=== PATIENT | male | born 1995 | race Caucasian/White ===

== ENCOUNTER 2019-09-27 18:51 | Emergency (ER) | payer BC, SELFPAY ==
[2019-09-27 19:11] VITALS: BP 157/93; PULSE 84; RESP 21; TEMP 36.6; O2SAT 99; BMI 19.9
--- NOTE | 2019-09-27 19:17 | HMH.EDUTC ---
[facility] [place] Impression: Sore throat Allergic rhinitis Qualifiers: Allergic rhinitis trigger: unspecified Allergic rhinitis seasonality: unspecified Qualified Code(s): J30.9 - Allergic rhinitis, unspecified Disposition: Home, Self-Care Condition on Discharge: Good Instructions: Sore Throat, Allergic Rhinitis, DI for Allergic Rhinitis Additional Instructions: *Monitor Temp, Over the counter Motrin or Tylenol as directed/as needed Tylenol every 4 hours and Motrin every 6 hours (as long as your family doctor has told you that you can take it) for fever or pain. and straight to ER if unable to lower temp less than 101.0 after medication given *Warm salt water gargles may help to soothe the throat *Throat Lozenges *Warm fluids like tea with honey may help to soothe the throat *Sleep elevated *Humidifier/Vaporizer Your throat swab was sent for culture. Those results are typically sent to your primary care. Be sure to follow up in 2-3 days with your family doctor/primary care physician if no improvement so they can review those result and treat if necessary. If you don?t have a primary care doctor, I recommend you get one but in the mean time, you will have to return to a walk in clinic Follow up with family doctor if no improvement or any worsening of symptoms Over the counter Claritain may help with allergy symptoms Follow up IMMEDIATELY for new or worsening symptoms or no Noticeable improvement over the next 48-72 hours. 911 for difficulty breathing or swallowing Referrals: Guanako Hernandez MD [Primary Care Provider] - As needed Time of Disposition: 19:34 Medical Decision Making - Real Inquiry Pt receiving controlled substance: No Real was queried for this patient: No Vital Signs: 09/27/19 19:11 Temperature 97.9 F Temperature Source Oral Pulse Rate [Right Brachial] 84 Respiratory Rate 21 Blood Pressure [Right Arm] 157/93 H Blood Pressure Mean [Right Arm] 114 Blood Pressure Source [Right Arm] Automatic Cuff Blood Pressure Position [Right Arm] Sitting 02 Sat by Pulse Oximetry 99 Oxygen Delivery Method Room Air - Lab Data Lab results reviewed: Yes: I reviewed the patient's lab results. Lab Results 09/27/19 19:13: Strep Scn Rapid Clinic Negative Orders (Tests/Meds): ORDERS Category Date Time Status Strep Screen Confirmation Stat Micro 09/27/19 19:13 [place] [facility] [place] - General Stated complaint: vomitting Time Seen by Provider: 09/27/19 19:17 Mode of Arrival: Ambulatory Source of Information: Patient Limitations: No Limitations Description of Symptoms (Recalled from Triage Doc. by RN): PATIENT STATES HE VOMITING X 1 AT APPROX 0330 THIS MORNING AND AFTER THAT HIS UVULA BECAME SWOLLEN. HE STATES IT HURTS TO SWALLOW. NO SOA. HE STATES HE DID HAVE A SIMILAR EPISODE THIS PAST WEEKEND AFTER DRINKING ALCOHOL HEENT Symptoms (Recalled from RN notes): Yes Resp Symptoms (Recalled from RN notes): No Skin Symptoms (Recalled from RN notes): No MS Symptoms (Recalled from RN notes): No Functional Status (Recalled from RN notes): WNL - History of Present Illness Provider Complaint: Patient state that he got drunk over the weekend and vomited and felt like his Uvula was swollen then it went down and went away States that he woke up this morning and vomited and his uvula felt swollen again and his throat was scratchy and hurt when he swallowed States that now throat is still sore but uvula swelling is gone - Related Data Home Medications Medication Instructions Recorded Confirmed Famotidine [Pepcid 20mg Tablet] 20 mg PO DAILY 09/27/19 09/27/19 Allergies Allergy/AdvReac Type Severity Reaction Status Date / Time No Known Allergies Allergy Verified 07/09/19 11:20 - Worker's Comp Is this a Worker's Comp case?: No [facility] History - Hepatitis A Screen Drug use history?: No High risk sexual behaviors?: No History of sexually transmitted infection?: No Currently employ
[2019-09-27 19:43] LABS: UTC Strep Screen (Rapid) Negative (Negative)
[2019-09-27 19:50] VITALS: BP 157/93; PULSE 84; RESP 21; TEMP 36.6; O2SAT 99
== END 2019-09-27 19:51 | disposition home or self-care (01) ==
PROVIDERS: Emergency Provider Nurse Practitioner; PCP Emergency Medicine
DX: J30.9 Allergic rhinitis, unspecified (principal); F17.210 Nicotine dependence, cigarettes, uncomplicated
CPT/HCPCS: 87880; 96372; 99202

== ENCOUNTER 2019-10-20 02:48 | Emergency (ER) | payer BC, SELFPAY ==
[2019-10-20 02:57] VITALS: BP 133/91; PULSE 94; RESP 17; TEMP 37.1; O2SAT 98; BMI 19.5
--- NOTE | 2019-10-20 02:57 | XR_ITS ---
PROCEDURE: XR SHOULDER LT MIN 2V CLINICAL INDICATION: pain- no known injury COMPARISON: No exams were available for comparison FINDINGS: No fracture or dislocation. No lytic or blastic change. There is normal mineralization. The joint spaces are well-preserved. No significant degenerative/arthritic changes. No erosive changes evident. Other findings:None. IMPRESSION: No acute findings. Dictated by: Josué Abel MD 10/20/2019 08:10 Electronically signed by Josué Abel MD in [place] 10/20/2019 08:10
--- NOTE | 2019-10-20 03:53 | HMH.EDGENADL ---
ED Disposition Clinical Impression: Bursitis of left shoulder Disposition: Home, Self-Care Condition on Discharge: Good Instructions: DI for Shoulder Pain Additional Instructions: use meds and see pcp for follow up Prescriptions: predniSONE [Prednisone 20mg Tab] 20 mg PO BID #10 tab Transmission Status: Pending to [id number] Referrals: Guanako Hernandez MD [Primary Care Provider] - - Critical Care Critical Care Time: No Attestation: On 10/20/19, the high probability of a clinically significant, sudden or life threatening deterioration of the following system(s) required my full and direct attention, intervention and personal management. The time I documented below is in addition to time spent performing reported procedures but includes the following listed in this critical care notation. Medical Decision Making - Medical Records Medical records reviewed: Yes: I reviewed the patient's medical records. - Real Inquiry Pt receiving controlled substance: No Vital Signs: 10/20/19 02:57 Temperature 98.7 F Temperature Source Oral Pulse Rate [Right Brachial] 94 H Respiratory Rate 17 Blood Pressure [Right Arm] 133/91 H Blood Pressure Mean [Right Arm] 105 Blood Pressure Source [Right Arm] Automatic Cuff Blood Pressure Position [Right Arm] Sitting 02 Sat by Pulse Oximetry 98 Oxygen Delivery Method Room Air Orders (Tests/Meds): ORDERS Category Date Time Status XR shoulder LT min 2V Stat Exams 10/20/19 02:57 Taken - Radiology Data #1 Image(s): Shoulder Image Reviewed: Yes I reviewed the patient's radiology image Preliminary Findings: No Fracture Seen General Adult HPI - General Chief complaint: PAIN Stated complaint: Left shoulder pain Time Seen by Provider: 10/20/19 03:05 Mode of Arrival: Family Vehicle Source of Information: Patient, Medical Record Limitations: No Limitations Description of Symptoms (Recalled from ER Triage Doc. by RN): woke up monday morning with left shoulder pain, denies injury. states he has used icy hot, tylenol and ibuprofen without relief. concerned because although he does repetitive pulling on items at work, he doesn't recall any specific incident that would've hurt it. denies prev surgery to area. - History of Present Illness HPI narrative: progressive pain aixa with mov over the last few days - Onset (ago): day(s) Location: upper extremity Radiation: distal Severity: moderate Quality: sharp Consistency: intermittent Exacerbating factors: movement Associated symptoms: denies other symptoms Treatments prior to arrival: none - Related Data Home Medications Medication Instructions Recorded Confirmed Famotidine [Pepcid 20mg Tablet] 20 mg PO DAILY 09/27/19 09/27/19 Previous Rx's Medication Instructions Recorded predniSONE [Prednisone 20mg 20 mg PO BID #10 tab 10/20/19 Tab] Allergies Allergy/AdvReac Type Severity Reaction Status Date / Time No Known Allergies Allergy Verified 07/09/19 11:20 [facility] History - Hepatitis A Screen Drug use history?: No High risk sexual behaviors?: No History of sexually transmitted infection?: No Currently employed?: No Childcare worker?: No Do you have indoor plumbing?: Yes Do you have electricity?: Yes Attestation statement:: This patient has been screened for Hepatitis A risk factors. I have reviewed the patient's past medical history: Yes Medical History: Reports:: Asthma Amputation: No Fractures: No Comment: scope - Social History Smoking Status: Current every day smoker Tobacco Type: cigarettes # Packs/Day (cigarettes): 1 Alcohol Intake: current Substance Use Type: hallucinogens Occupational Status: other Family Hx:: No significant family history ROS Obtained: Yes All systems reviewed & no additional complaints - Constitutional Constitutional: Denies fever(s) - Eyes Eyes: Denies change in vision - ENT Ears, Nose, Mouth, and Throat: Denies ab
[2019-10-20 04:05] VITALS: BP 128/89; PULSE 88; RESP 16; TEMP 37.1; O2SAT 99
== END 2019-10-20 04:12 | disposition home or self-care (01) ==
PROVIDERS: Emergency Provider Emergency Medicine; PCP Emergency Medicine
DX: M75.52 Bursitis of left shoulder (principal); J45.909 Unspecified asthma, uncomplicated; F17.210 Nicotine dependence, cigarettes, uncomplicated
CPT/HCPCS: 73030; 99282

== ENCOUNTER 2019-10-31 08:59 | Emergency (ER) | payer BC, SELFPAY ==
[2019-10-31 09:02] VITALS: BP 115/80; PULSE 80; RESP 18; O2SAT 99
[2019-10-31 09:07] VITALS: BP 143/92; PULSE 81; RESP 18; TEMP 36.7; O2SAT 98; BMI 19.3
--- NOTE | 2019-10-31 09:09 | HMH.EDGENADL ---
ED Disposition Clinical Impression: Acute bronchitis Qualifiers: Bronchitis organism: unspecified organism Qualified Code(s): J20.9 - Acute bronchitis, unspecified Disposition: Home, Self-Care Condition on Discharge: Good Instructions: DI for Acute Bronchitis Additional Instructions: Z-Jerman as prescribed. Follow-up with primary care provider if not better in 1 week. Prescriptions: Azithromycin [Zithromax 250mg tab] 250 mg PO DIRECTED #6 tab Transmission Status: Received by [id number] Referrals: Guanako Hernandez MD [Primary Care Provider] - Forms: Work/School Release - Critical Care Critical Care Time: No Attestation: On , the high probability of a clinically significant, sudden or life threatening deterioration of the following system(s) required my full and direct attention, intervention and personal management. The time I documented below is in addition to time spent performing reported procedures but includes the following listed in this critical care notation. Medical Decision Making - Real Inquiry Pt receiving controlled substance: No Vital Signs: 10/31/19 09:02 10/31/19 09:07 10/31/19 09:32 Temperature 98.1 F Temperature Source Oral Pulse Rate [Radial] 80 81 66 Respiratory Rate 18 18 17 Blood Pressure [Right Arm] 115/80 143/92 H 124/70 Blood Pressure Mean [Right Arm] 91 109 88 Blood Pressure Source [Right Arm] Automatic Cuff Automatic Cuff Automatic Cuff Blood Pressure Position [Right Arm] Sitting Sitting Sitting 02 Sat by Pulse Oximetry 99 98 99 Oxygen Delivery Method Room Air Room Air Room Air - Radiology Data #1 Image(s): Chest Image Reviewed: Yes I have reviewed radiologist's interpretation Preliminary Findings: Normal/NAD Medical Decision Narrative: Discussed results. Patient requests a work note. Says that his next shift is tomorrow. General Adult HPI - General Stated complaint: coughing Time Seen by Provider: 10/31/19 09:09 - History of Present Illness HPI narrative: States that while at work last night he began coughing up some black phlegm. Denies chest pain, shortness of breath, fever, rhinorrhea, earache, sore throat. He works at a [employer] for the past 4-1/2 months. 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 He says he was told he had bronchitis. He states he is a avid smoker , 1/2 pack/day. - Related Data Previous Rx's Medication Instructions Recorded Azithromycin [Zithromax 250mg 250 mg PO DIRECTED #6 tab 10/31/19 tab] Allergies Allergy/AdvReac Type Severity Reaction Status Date / Time No Known Allergies Allergy Verified 07/09/19 11:20 [facility] History - Hepatitis A Screen Attestation statement:: This patient has been screened for Hepatitis A risk factors. I have reviewed the patient's past medical history: Yes Medical History: Reports:: Asthma Amputation: No Fractures: No Comment: scope - Social History Smoking Status: Current every day smoker Tobacco Type: cigarettes # Packs/Day (cigarettes): 1 Alcohol Intake: current Substance Use Type: hallucinogens Occupational Status: other Family Hx:: No significant family history ROS Obtained: Yes Systems reviewed as appropriate & no additional complaints - Constitutional Constitutional: Denies fever(s) - ENT Ears, Nose, Mouth, and Throat: Denies nasal discharge, Denies sore throat - Cardiovascular Cardiovascular: Denies chest pain - Respiratory Respiratory: Yes cough, No dyspnea, No coughing up blood, No pain on inspiration - Gastrointestinal Gastrointestingal: Denies: diarrhea, vomiting Physical Exam - General General appearance: alert, in no apparent distress - Head Head exam: atraumatic, normocephalic - Eye Eye exam: Present: normal appearance, EOMI - ENT ENT exam: Present: normal oropharynx, mucous membranes yolanda
[2019-10-31 09:11] VITALS: BMI 41.4
--- NOTE | 2019-10-31 09:12 | XR_ITS ---
PROCEDURE: XR CHEST 2V CLINICAL HISTORY: cough COMPARISON: CXR CHEST(2 VIEWS-NOT PORTABLE) from 04/25/2012 CXR CHEST(2 VIEWS-NOT PORTABLE) from 04/14/2015 FINDINGS: The cardiomediastinal silhouette and pulmonary vascularity are within normal limits. The lungs are clear without infiltrates, suspicious nodules, or pleural effusions. No acute bony abnormalities. IMPRESSION: No acute findings. Dictated by: Josué Abel MD 10/31/2019 09:44 Electronically signed by Josué Abel MD in [place] 10/31/2019 09:44
[2019-10-31 09:32] VITALS: BP 124/70; PULSE 66; RESP 17; O2SAT 99
[2019-10-31 10:01] VITALS: BP 124/70; PULSE 66; RESP 17; TEMP 36.7; O2SAT 99
== END 2019-10-31 10:03 | disposition home or self-care (01) ==
PROVIDERS: Emergency Provider Emergency Medicine; PCP Emergency Medicine
DX: J20.9 Acute bronchitis, unspecified (principal); F17.210 Nicotine dependence, cigarettes, uncomplicated
CPT/HCPCS: 71046; 99282

== ENCOUNTER 2020-01-08 10:57 | Emergency (ER) | payer BC, SELFPAY ==
[2020-01-08 10:58] VITALS: BP 144/87; PULSE 77; RESP 16; TEMP 36.6; O2SAT 98; BMI 21.9
--- NOTE | 2020-01-08 11:24 | HMH.EDUTC ---
[facility] [place] Clinical Impression: Allergic rhinitis Qualifiers: Allergic rhinitis trigger: unspecified Allergic rhinitis seasonality: unspecified Qualified Code(s): J30.9 - Allergic rhinitis, unspecified Disposition: Home, Self-Care Condition on Discharge: Good Instructions: DI for Allergic Rhinitis, Allergic Rhinitis Additional Instructions: *Monitor Temp, Over the counter Motrin or Tylenol as directed/as needed Tylenol every 4 hours and Motrin every 6 hours (as long as your family doctor has told you that you can take it) for fever or pain. and straight to ER if unable to lower temp less than 101.0 after medication given *Warm salt water gargles may help to soothe the throat *Throat Lozenges *Warm fluids like tea with honey may help to soothe the throat *Sleep elevated *Humidifier/Vaporizer *Flonase 2 sprays in each nostril daily but be aware that it may take 2-3 days before you notice improvement Follow up IMMEDIATELY for new or worsening symptoms or no Noticeable improvement over the next 48-72 hours. 911 for difficulty breathing or swallowing Prescriptions: Fluticasone Propionate [Flonase 50mcg nasal spray 16gm] 1 - 2 spr NS DAILY #1 bottle Transmission Status: Pending to [id number] Referrals: Guanako Hernandez MD [Primary Care Provider] - Time of Disposition: 11:30 Medical Decision Making - Real Inquiry Pt receiving controlled substance: No Real was queried for this patient: No Vital Signs: 01/08/20 10:58 Temperature 97.9 F Temperature Source Oral Pulse Rate [Right] 77 Respiratory Rate 16 Blood Pressure [Right Arm] 144/87 H Blood Pressure Mean [Right Arm] 106 Blood Pressure Source [Right Arm] Automatic Cuff Blood Pressure Position [Right Arm] Sitting 02 Sat by Pulse Oximetry 98 Oxygen Delivery Method Room Air [facility] [place] HPI - General Stated complaint: coughing, vomiting Time Seen by Provider: 01/08/20 11:24 Mode of Arrival: Ambulatory Source of Information: Patient Limitations: No Limitations Description of Symptoms (Recalled from Triage Doc. by RN): Pt advises he got up to go to work this morning and started coughing. Advises he has just been coughing HEENT Symptoms (Recalled from RN notes): Yes (cough) Resp Symptoms (Recalled from RN notes): No Skin Symptoms (Recalled from RN notes): No MS Symptoms (Recalled from RN notes): No Functional Status (Recalled from RN notes): na - History of Present Illness Provider Complaint: Patient states that he has been having allergy symptoms States that he woke up this morning and was coughing and work wouldnt let him come in and told him that he needed to come in and get checked so he did - Related Data Previous Rx's Medication Instructions Recorded Fluticasone Propionate [Flonase 1 - 2 spr NS DAILY #1 bottle 01/08/20 50mcg nasal spray 16gm] Allergies Allergy/AdvReac Type Severity Reaction Status Date / Time No Known Allergies Allergy Verified 07/09/19 11:20 - Worker's Comp Is this a Worker's Comp case?: No [facility] History - Hepatitis A Screen Drug use history?: No High risk sexual behaviors?: No History of sexually transmitted infection?: No Currently employed?: No Childcare worker?: No Do you have indoor plumbing?: Yes Do you have electricity?: Yes Attestation statement:: This patient has been screened for Hepatitis A risk factors. I have reviewed the patient's past medical history: Yes Medical History: Reports:: Asthma Amputation: No Fractures: No Comment: scope - Social History Smoking Status: Current every day smoker Tobacco Type: cigarettes # Packs/Day (cigarettes): 1 Alcohol Intake: never Substance Use Type: hallucinogens Occupational Status: employed Family Hx:: No significant family history ROS Obtained: Yes All systems reviewed & no additional complaints, Yes Systems reviewed as appropriate & no additional complaints - Constitutional Constitutional: Denies body ache, Denies chills, Toni
[2020-01-08 11:30] VITALS: BP 140/65; PULSE 65; RESP 16; TEMP 36.6; O2SAT 98
== END 2020-01-08 11:33 | disposition home or self-care (01) ==
PROVIDERS: Emergency Provider Nurse Practitioner; PCP Emergency Medicine
DX: J30.9 Allergic rhinitis, unspecified (principal); F17.210 Nicotine dependence, cigarettes, uncomplicated
CPT/HCPCS: 99201

== ENCOUNTER 2020-01-14 12:14 | Emergency (ER) | payer BC, SELFPAY ==
[2020-01-14 12:58] VITALS: BP 122/75; PULSE 80; RESP 20; TEMP 36.6; O2SAT 99; BMI 20.3
--- NOTE | 2020-01-14 13:10 | HMH.EDUTC ---
[facility] [place] Clinical Impression: Encounter for laboratory testing for COVID-19 virus Disposition: Home, Self-Care Condition on Discharge: Good Instructions: Preventing the Spread of Coronavirus Discharge Instructions Additional Instructions: You was tested for today for COVID19 your test result should be back tomorrow or , you may call back in the evening tomorrow or evening to see if your test results are back and the result You was given a handout with instructions for Self Quarantine and Self isolation for while you wait on test results and what to do if they are positive Return if needed No work until negative COVID test Referrals: Guanako Hernandez MD [Primary Care Provider] - Forms: Work/School Release Medical Decision Making - Real Inquiry Pt receiving controlled substance: No Real was queried for this patient: No Vital Signs: 01/14/20 12:58 Temperature 97.9 F Temperature Source Oral Pulse Rate [Right Brachial] 80 Respiratory Rate 20 Blood Pressure [Right Arm] 122/75 Blood Pressure Mean [Right Arm] 90 Blood Pressure Source [Right Arm] Automatic Cuff Blood Pressure Position [Right Arm] Sitting 02 Sat by Pulse Oximetry 99 Oxygen Delivery Method Room Air Orders (Tests/Meds): ORDERS Category Date Time Status Covid-19 Nasal PCR Sendout [facility] 01/14/20 12:39 Ordered [facility] [place] HPI - General Stated complaint: exposed to covid Time Seen by Provider: 01/14/20 13:10 Mode of Arrival: Ambulatory Source of Information: Patient Limitations: No Limitations Description of Symptoms (Recalled from Triage Doc. by RN): PATIENT NEEDING COVID TEST. EXPOSED TO COWORKER WHO TESTED POSITIVE YESTERDAY, DENIES SYMPTOMS HEENT Symptoms (Recalled from RN notes): No Resp Symptoms (Recalled from RN notes): No Skin Symptoms (Recalled from RN notes): No MS Symptoms (Recalled from RN notes): No Functional Status (Recalled from RN notes): WNL - History of Present Illness Provider Complaint: Patient states that he was recently exposed to COVID 19 by another coworker who recently tested positive for COVID yesterday State that he hasnt had any symptoms but they was still concerned and wanted them to get tested where the other employee tested positive - Related Data Previous Rx's Medication Instructions Recorded Fluticasone Propionate [Flonase 1 - 2 spr NS DAILY #1 bottle 01/08/20 50mcg nasal spray 16gm] Allergies Allergy/AdvReac Type Severity Reaction Status Date / Time No Known Allergies Allergy Verified 07/09/19 11:20 - Worker's Comp Is this a Worker's Comp case?: No [facility] History - Hepatitis A Screen Drug use history?: No High risk sexual behaviors?: No History of sexually transmitted infection?: No Currently employed?: No Childcare worker?: No Do you have indoor plumbing?: Yes Do you have electricity?: Yes Attestation statement:: This patient has been screened for Hepatitis A risk factors. I have reviewed the patient's past medical history: Yes Medical History: Reports:: Asthma Amputation: No Fractures: No Comment: scope - Social History Smoking Status: Current every day smoker Tobacco Type: cigarettes # Packs/Day (cigarettes): 0 Alcohol Intake: never Substance Use Type: hallucinogens Occupational Status: other Family Hx:: No significant family history ROS Obtained: Yes All systems reviewed & no additional complaints, Yes Systems reviewed as appropriate & no additional complaints - Constitutional Constitutional: Reports system reviewed and no additional complaints, except as docu, Denies body ache, Denies chills, Denies fever(s), Denies headache(s) - ENT Ears, Nose, Mouth, and Throat: Reports system reviewed and no additional complaints, except as docu, Denies sinus pain, Denies sinus pressure, Denies sore throat - Cardiovascular Cardiovascular: Reports system reviewed and no additional complaints, except as docu - Respiratory Respiratory: No chest
[2020-01-14 13:30] VITALS: BP 122/75; PULSE 80; RESP 20; TEMP 36.6; O2SAT 99
[2020-01-15 16:25] LABS: Covid-19 Nasal PCR Sendout Lex Not Detected
== END 2020-01-14 13:31 | disposition home or self-care (01) ==
PROVIDERS: Emergency Provider Nurse Practitioner; PCP Emergency Medicine
DX: Z20.828 Contact with and (suspected) exposure to other viral communicable diseases (principal); F17.210 Nicotine dependence, cigarettes, uncomplicated
CPT/HCPCS: 99201; U0004

== ENCOUNTER 2020-03-05 12:56 | Emergency (ER) | payer MEDICAID, SELFPAY ==
[2020-03-05 14:10] VITALS: BP 131/82; PULSE 82; RESP 20; TEMP 36.7; O2SAT 100; BMI 20.3
--- NOTE | 2020-03-05 14:22 | HMH.EDUTC ---
[facility] Disposition Clinical Impression: Viral upper respiratory illness Disposition: Home, Self-Care Condition on Discharge: Good Instructions: DI for Viral Upper Respiratory Infection -- Adult, Preventing the Spread of Coronavirus Discharge Instructions Additional Instructions: *Monitor Temp, Over the counter Motrin or Tylenol as directed/as needed Tylenol every 4 hours and Motrin every 6 hours (as long as your family doctor has told you that you can take it) for fever or pain. and straight to ER if unable to lower temp less than 101.0 after medication given *Warm salt water gargles may help to soothe the throat *Throat Lozenges *Warm fluids like tea with honey may help to soothe the throat *Sleep elevated *Humidifier/Vaporizer *Flonase 2 sprays in each nostril daily but be aware that it may take 2-3 days before you notice improvement *Bromfed may cause drowsiness. Know how it effects you (your child) before driving, caring for small child, or sending your child to school. Not other antihistamines/allergy medications while taking bromfed Your throat swab was sent for culture. Those results are typically sent to your primary care. Be sure to follow up in 2-3 days with your family doctor/primary care physician if no improvement so they can review those result and treat if necessary. If you don?t have a primary care doctor, I recommend you get one but in the mean time, you will have to return to a walk in clinic Follow up IMMEDIATELY for new or worsening symptoms or no Noticeable improvement over the next 48-72 hours. 911 for difficulty breathing or swallowing You was tested for today for COVID19 your test result should be back in the next 24-48 hours, you may call to the [facility] later today or tomorrow to see if your test results are back and the result [phone] [facility] hours are 9am-9pm You was given a handout with instructions for Self Quarantine and Self isolation for while you wait on test results and what to do if they are positive If you are positive the Health Dept will be contacting you also Prescriptions: Brompheniramine/Pseudoephed/Dm [Bromfed Dm Cough Syrup] 5 - 10 ml PO Q46H PRN #100 ml PRN Reason: Cough Transmission Status: Pending to [id number] Fluticasone Propionate [Flonase 50mcg nasal spray 16gm] 1 spr NS DAILY #1 bottle Transmission Status: Pending to [id number] Referrals: Guanako Hernandez MD [Primary Care Provider] - As needed Forms: Work/School Release Time of Disposition: 14:30 Medical Decision Making - Real Inquiry Pt receiving controlled substance: No Real was queried for this patient: No Vital Signs: 03/05/20 14:10 Temperature 98.1 F Temperature Source Oral Pulse Rate [Radial] 82 Respiratory Rate 20 Blood Pressure [Right Arm] 131/82 Blood Pressure Mean [Right Arm] 98 Blood Pressure Source [Right Arm] Automatic Cuff Blood Pressure Position [Right Arm] Sitting 02 Sat by Pulse Oximetry 100 Oxygen Delivery Method Room Air Orders (Tests/Meds): ORDERS Category Date Time Status Covid-19 Nasal PCR ([facility]) Routine Lab 03/05/20 14:09 Ordered [facility] UTC HPI - General Stated complaint: sore throat Time Seen by Provider: 03/05/20 14:23 Mode of Arrival: Ambulatory Source of Information: Patient Limitations: No Limitations Description of Symptoms (Recalled from Triage Doc. 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
[2020-03-05 14:53] VITALS: BP 131/82; PULSE 82; RESP 20; TEMP 36.7; O2SAT 100
[2020-03-05 20:21] LABS: UTC Strep Screen (Rapid) Negative (Negative)
== END 2020-03-05 14:54 | disposition home or self-care (01) ==
PROVIDERS: Emergency Provider Nurse Practitioner; PCP Emergency Medicine
DX: Z20.828 Contact with and (suspected) exposure to other viral communicable diseases (principal); J06.9 Acute upper respiratory infection, unspecified; F17.210 Nicotine dependence, cigarettes, uncomplicated
CPT/HCPCS: 87880; 99202; U0003

== ENCOUNTER 2020-07-31 10:50 | Emergency (ER) | payer BC, SELFPAY ==
[2020-07-31 11:05] VITALS: BP 112/75; PULSE 79; RESP 17; TEMP 37; O2SAT 98
--- NOTE | 2020-07-31 11:16 | HMH.EDUTC ---
[facility] Disposition Clinical Impression: URI (upper respiratory infection) Qualifiers: URI type: unspecified URI Qualified Code(s): J06.9 - Acute upper respiratory infection, unspecified Disposition: Home, Self-Care Condition on Discharge: Good Instructions: Sore Throat, DI for Sinusitis Additional Instructions: *Monitor Temp, Over the counter Motrin or Tylenol as directed/as needed Tylenol every 4 hours and Motrin every 6 hours (as long as your family doctor has told you that you can take it) for fever or pain. and straight to ER if unable to lower temp less than 101.0 after medication given *Warm salt water gargles may help to soothe the throat *Throat Lozenges *Warm fluids like tea with honey may help to soothe the throat *Sleep elevated *Humidifier/Vaporizer Your throat swab was sent for culture. Those results are typically sent to your primary care. Be sure to follow up in 2-3 days with your family doctor/primary care physician if no improvement so they can review those result and treat if necessary. If you don?t have a primary care doctor, I recommend you get one but in the mean time, you will have to return to a walk in clinic Follow up IMMEDIATELY for new or worsening symptoms or no Noticeable improvement over the next 48-72 hours. 911 for difficulty breathing or swallowing Referrals: Guanako Hernandez MD [Primary Care Provider] - Forms: Work/School Release Time of Disposition: 11:41 Medical Decision Making - Real Inquiry Pt receiving controlled substance: No Real was queried for this patient: No Vital Signs: 07/31/20 11:05 Temperature 98.6 F Temperature Source Oral Pulse Rate [Right Brachial] 79 Respiratory Rate 17 Blood Pressure [Right Arm] 112/75 Blood Pressure Mean [Right Arm] 87 Blood Pressure Source [Right Arm] Automatic Cuff Blood Pressure Position [Right Arm] Sitting 02 Sat by Pulse Oximetry 98 Oxygen Delivery Method Room Air - Lab Data Lab Results 07/31/20 11:11: Strep Scn Rapid Clinic Negative Orders (Tests/Meds): ED MEDICATIONS Discontinued Medications Generic Name Dose Route Start Last Admin Trade Name Freq PRN Reason Stop Dose Admin Ceftriaxone Sodium 1 gm 07/31/20 11:20 07/31/20 11:33 Ceftriaxone 1gm Vial IM 07/31/20 11:21 1 gm ONCE ONE Administration Protocol Lidocaine HCl 0 ml 07/31/20 11:20 07/31/20 11:32 Lidocaine 1% 5ml Pf Vial IM 07/31/20 11:21 2.1 ml ONCE ONE Administration Methylprednisolone Sodium Succinate 125 mg 07/31/20 11:20 07/31/20 11:33 Methylprednisolone Sod Succ 125mg Vial IM 07/31/20 11:21 125 mg ONCE ONE Administration ORDERS Category Date Time Status Strep Screen Confirmation Stat Micro 07/31/20 11:11 Received [facility] HPI - General Stated complaint: sore throat, congestion Time Seen by Provider: 07/31/20 11:16 Mode of Arrival: Ambulatory Source of Information: Patient Limitations: No Limitations Description of Symptoms (Recalled from Triage Doc. by RN): PATIENT C/O SCRATCHY THROAT AND NASAL CONGESTION X 2 DAYS HEENT Symptoms (Recalled from RN notes): Yes Resp Symptoms (Recalled from RN notes): No Skin Symptoms (Recalled from RN notes): No MS Symptoms (Recalled from RN notes): No Functional Status (Recalled from RN notes): WNL - History of Present Illness Provider Complaint: Patient state that his throat has felt scratchy and nasal congestion for the last couple of days State that today it was worse State that he went to work and was sent home State that his throat feels like he swallowed glass . - Related Data Home Medications Medication Instructions Recorded Confirmed No Known Home Medications 06/30/20 06/30/20 Allergies Allergy/AdvReac Type Severity Reaction Status Date / Time No Known Allergies Allergy Verified 06/30/20 12:45 - Worker's Comp Is this a Worker's Comp case?: No [facility] History - Hepatitis A Screen Drug use history?: No High risk sexual behavio
[2020-07-31 11:28] LABS: UTC Strep Screen (Rapid) Negative (Negative)
[2020-07-31 11:55] VITALS: BP 112/75; PULSE 79; RESP 17; TEMP 37; O2SAT 98
== END 2020-07-31 11:59 | disposition home or self-care (01) ==
PROVIDERS: Emergency Provider Nurse Practitioner; PCP Emergency Medicine
DX: J06.9 Acute upper respiratory infection, unspecified (principal); F17.210 Nicotine dependence, cigarettes, uncomplicated
CPT/HCPCS: 87880; 96372; 99202; G0463

== ENCOUNTER 2020-11-21 12:31 | Emergency (ER) | payer SELFPAY ==
[2020-11-21 12:32] VITALS: BP 126/80; PULSE 99; RESP 18; TEMP 36.8; O2SAT 97; BMI 20.7
--- NOTE | 2020-11-21 12:44 | XR_ITS ---
PROCEDURE INFORMATION: Exam: XR Right Foot Exam date and time: 11/21/2020 12:44 PM Age: 25 years old Clinical indication: Injury or trauma; Fall; Blunt trauma; Foot; Right; Additional info: Fall, C/O heel pain TECHNIQUE: Imaging protocol: XR Right foot. Views: 3 or more views. COMPARISON: No relevant prior studies available. FINDINGS: Bones/joints: There is no evidence of acute fracture. There is no evidence of joint malalignment or dislocation. Soft tissues: There are no soft tissue masses or fluid collections. IMPRESSION: 1. No evidence of acute fracture. 2. No evidence of acute dislocation.
--- NOTE | 2020-11-21 12:44 | XR_ITS ---
PROCEDURE INFORMATION: Exam: XR Right Ankle Exam date and time: 11/21/2020 12:44 PM Age: 25 years old Clinical indication: Injury or trauma; Fall; Blunt trauma; Ankle; Right; Additional info: Fall, C/O heel pain TECHNIQUE: Imaging protocol: XR Right ankle. Views: 3 or more views. COMPARISON: No relevant prior studies available. FINDINGS: Bones/joints: There is no evidence of acute fracture. There is no evidence of joint malalignment or dislocation. Soft tissues: There are no soft tissue masses or fluid collections. IMPRESSION: 1. No evidence of acute fracture. 2. No evidence of acute dislocation.
[2020-11-21 13:28] VITALS: BP 125/92; PULSE 85; RESP 20; TEMP 37.1; O2SAT 97; BMI 20.7
--- NOTE | 2020-11-21 14:19 | HMH.EDUTC ---
[facility] [place] Disposition Clinical Impression: Right ankle sprain Qualifiers: Encounter type: initial encounter Involved ligament of ankle: anterior talofibular ligament Qualified Code(s): S93.491A - Sprain of other ligament of right ankle, initial encounter Disposition: Home, Self-Care Condition on Discharge: Good Instructions: DI for Ankle Sprain Additional Instructions: Elevate foot. Ice. Motrin or Aleve. Referrals: Guaanko Hernandez MD [Primary Care Provider] - Time of Disposition: 14:29 Medical Decision Making - Real Inquiry Pt receiving controlled substance: No Vital Signs: 11/21/20 12:32 11/21/20 13:28 Temperature 98.3 F 98.7 F Temperature Source Oral Oral Pulse Rate [Right] 99 H 85 Respiratory Rate 18 20 Blood Pressure [Right Arm] 126/80 125/92 H Blood Pressure Mean [Right Arm] 95 103 02 Sat by Pulse Oximetry 97 97 Oxygen Delivery Method Room Air - Radiology Data #1 Image(s): Foot/Toes Image Reviewed: Yes I have reviewed radiologist's interpretation Preliminary Findings: Normal/NAD, No Fracture Seen PROCEDURE INFORMATION: Exam: XR Right Foot Exam date and time: 11/21/2020 12:44 PM Age: 25 years old Clinical indication: Injury or trauma; Fall; Blunt trauma; Foot; Right; Additional info: Fall, C/O heel pain TECHNIQUE: Imaging protocol: XR Right foot. Views: 3 or more views. COMPARISON: No relevant prior studies available. FINDINGS: Bones/joints: There is no evidence of acute fracture. There is no evidence of joint malalignment or dislocation. Soft tissues: There are no soft tissue masses or fluid collections. IMPRESSION: 1. No evidence of acute fracture. 2. No evidence of acute dislocation. #2 Image(s): Ankle [facility] HPI - General Stated complaint: a/o 11/21 left foot ankle injury Time Seen by Provider: 11/21/20 14:21 Mode of Arrival: Ambulatory Source of Information: Patient Limitations: No Limitations Description of Symptoms (Recalled from Triage Doc. by RN): PER TRIAGE. pt was going down stairs last night & twisted righ ankle, swelling & bruising noted, no obvious deformity. HEENT Symptoms (Recalled from RN notes): No Resp Symptoms (Recalled from RN notes): No Skin Symptoms (Recalled from RN notes): No MS Symptoms (Recalled from RN notes): Yes Functional Status (Recalled from RN notes): wnl - History of Present Illness Provider Complaint: Patient was walking down stairs this am around 4 am, missed a step, and rolled his right ankle. Has pain and swelling in right ankle and foot. Hurts to bear weight. Has had a previous severe sprain of same ankle. Onset (ago): day(s) (1) Location: right, lower extremity Relieving factors: none Exacerbating factors: none Associated symptoms: denies other symptoms Treatments prior to arrival: other (VIDYA Wrap) - Related Data Home Medications Medication Instructions Recorded Confirmed No Known Home Medications 06/30/20 06/30/20 Allergies Allergy/AdvReac Type Severity Reaction Status Date / Time No Known Allergies Allergy Verified 06/30/20 12:45 - Worker's Comp Is this a Worker's Comp case?: No [facility] History - Hepatitis A Screen Drug use history?: No High risk sexual behaviors?: No History of sexually transmitted infection?: No Currently employed?: No Childcare worker?: No Do you have indoor plumbing?: Yes Do you have electricity?: Yes Attestation statement:: This patient has been screened for Hepatitis A risk factors. I have reviewed the patient's past medical history: Yes Medical History: Reports:: Asthma Amputation: No Fractures: No Comment: scope - Social History Smoking Status: Current every day smoker Tobacco Type: cigarettes # Packs/Day (cigarettes): 1 Alcohol Intake: never Substance Use Type: hallucinogens Occupational Status: other Housing: house Family Hx:: No significant family history ROS Obtained: Yes All systems reviewed & no additional complaints - Musculoskele
[2020-11-21 14:48] VITALS: BP 125/92; PULSE 85; RESP 20; TEMP 37.1; O2SAT 97
== END 2020-11-21 14:48 | disposition home or self-care (01) ==
PROVIDERS: Emergency Provider Physician Assistant; PCP Emergency Medicine
DX: S93.491A Sprain of other ligament of right ankle, initial encounter (principal); W10.9XXA Fall (on) (from) unspecified stairs and steps, initial encounter; Y92.9 Unspecified place or not applicable; F17.210 Nicotine dependence, cigarettes, uncomplicated
CPT/HCPCS: 73610; 73630; 99202; G0463

== ENCOUNTER → 2021-01-11 12:10 | Outpatient (CLI) | payer SELFPAY | PROVIDERS: PCP Emergency Medicine; Visit Provider Nurse Practitioner | DX: Z20.822 Contact with and (suspected) exposure to COVID-19 (principal); U07.1 COVID-19 | CPT/HCPCS: C9803; U0003; U0005 ==

== ENCOUNTER 2021-06-18 04:58 | Emergency (ER) | payer SELFPAY ==
[2021-06-18 04:59] VITALS: BP 147/98; PULSE 92; RESP 16; TEMP 36.5; O2SAT 99; BMI 25.0
[2021-06-18 05:11] VITALS: BMI 25.0
--- NOTE | 2021-06-18 05:11 | XR_ITS ---
PROCEDURE INFORMATION: Exam: XR Right Elbow Exam date and time: 06/18/2021 5:11 AM Age: 25 years old Clinical indication: Upper arm and elbow; Patient HX: Right ue pain, nki TECHNIQUE: Imaging protocol: XR Right elbow. Views: 3 or more views. COMPARISON: SOFI LOTT ELBOW-RT-3 VIEWS 10/10/2014 1:35 AM FINDINGS: Bones/joints: Normal. The joints are well aligned. There is no fracture present. There is no area of lysis. Soft tissues: Normal. IMPRESSION: No evidence for a significant traumatic injury.
--- NOTE | 2021-06-18 05:11 | XR_ITS ---
PROCEDURE INFORMATION: Exam: XR Right Shoulder Exam date and time: 06/18/2021 5:11 AM Age: 25 years old Clinical indication: Upper arm; Patient HX: Right ue pain, nki TECHNIQUE: Imaging protocol: XR Right shoulder. Views: 2 or more views. COMPARISON: CR XR HUMERUS RT 06/18/2021 5:06 AM FINDINGS: Bones/joints: Normal. There is no fracture present. The shoulder joint appears well aligned. The acromioclavicular joint is unremarkable. The visualized ribs and lungs are unremarkable. Soft tissues: Normal. IMPRESSION: Unremarkable examination with no fracture or dislocation.
--- NOTE | 2021-06-18 05:11 | XR_ITS ---
PROCEDURE INFORMATION: Exam: XR Right Humerus Exam date and time: 06/18/2021 5:11 AM Age: 25 years old Clinical indication: Upper arm; Patient HX: Right ue pain, nki TECHNIQUE: Imaging protocol: XR Right humerus. Views: 2 or more views. COMPARISON: CR XR CHEST 2V 10/31/2019 9:29 AM FINDINGS: Bones/joints: Normal. There is no acute fracture present. The joints are well aligned. Soft tissues: Normal. IMPRESSION: Unremarkable examination with no fracture or dislocation.
--- NOTE | 2021-06-18 06:35 | HMH.EDGENADL ---
ED Disposition Clinical Impression: Upper extremity pain Qualifiers: Laterality: right Qualified Code(s): M79.601 - Pain in right arm Disposition: Home, Self-Care Condition on Discharge: Good Instructions: DI for Acute Pain -- Adult Additional Instructions: use meds and see pcp for follow up next week Prescriptions: predniSONE [Prednisone 20mg Tab] 20 mg PO BID #10 tab Transmission Status: Pending to [id number] Referrals: Guanako Hernandez MD [Primary Care Provider] - - Critical Care Critical Care Time: No Attestation: On 06/18/21, the high probability of a clinically significant, sudden or life threatening deterioration of the following system(s) required my full and direct attention, intervention and personal management. The time I documented below is in addition to time spent performing reported procedures but includes the following listed in this critical care notation. Medical Decision Making - Medical Records Medical records reviewed: Yes: I reviewed the patient's medical records. - Real Inquiry Pt receiving controlled substance: No Vital Signs: 06/18/21 04:59 Temperature 97.7 F Temperature Source Oral Pulse Rate [Left] 92 H Respiratory Rate 16 Blood Pressure [Right Arm] 147/98 H Blood Pressure Mean [Right Arm] 114 02 Sat by Pulse Oximetry 99 Oxygen Delivery Method Room Air Orders (Tests/Meds): ED MEDICATIONS Generic Name Dose Route Start Last Admin Trade Name Freq PRN Reason Stop Dose Admin Indomethacin 25 mg 06/18/21 06:42 Indomethacin 25 Mg Capsule PO 06/18/21 06:43 ONCE ONE - Radiology Data #1 Image(s): Shoulder, Humerus, Elbow Image Reviewed: Yes I have reviewed radiologist's interpretation Preliminary Findings: No Fracture Seen Medical Decision Narrative: has clinical stable exam and xrays - trial of steroids General Adult HPI - General Chief complaint: PAIN Stated complaint: Pain in right arm,no injury Time Seen by Provider: 06/18/21 05:35 Mode of Arrival: Ambulatory Source of Information: Patient, Medical Record Limitations: No Limitations Description of Symptoms (Recalled from ER Triage Doc. by RN): pt states that he is having pain in his right bicep that shoots pain through to his shoulder and down to his elbow, and there is a pinching feeling under the bicep pt states it was like this when he woke up yesterday morning and then again this morning but this time it is way worse. pt has full range of motion. - History of Present Illness HPI narrative: pt with rt biceps pain over the last few days w/o trauma or rash Onset (ago): day(s) Location: upper extremity Severity: moderate Quality: aching Associated symptoms: denies other symptoms Treatments prior to arrival: none - Related Data Previous Rx's Medication Instructions Recorded predniSONE [Prednisone 20mg 20 mg PO BID #10 tab 06/18/21 Tab] Allergies Allergy/AdvReac Type Severity Reaction Status Date / Time No Known Allergies Allergy Verified 03/17/21 14:23 [facility] History - Hepatitis A Screen Drug use history?: No High risk sexual behaviors?: No History of sexually transmitted infection?: No Currently employed?: No Childcare worker?: No Do you have indoor plumbing?: Yes Do you have electricity?: Yes Attestation statement:: This patient has been screened for Hepatitis A risk factors. I have reviewed the patient's past medical history: Yes Medical History: Reports:: Asthma Amputation: No Fractures: No Comment: scope - Social History Smoking Status: Current every day smoker Tobacco Type: cigarettes # Packs/Day (cigarettes): 1 Alcohol Intake: never Substance Use Type: hallucinogens Occupational Status: other Housing: house Family Hx:: No significant family history ROS Obtained: Yes All systems reviewed & no additional complaints - Constitutional Constitutional: Denies fever(s) - Eyes Eyes: Denies change in vision - ENT
[2021-06-18 06:45] VITALS: BP 127/90; PULSE 78; RESP 20; TEMP 36.8; O2SAT 98
== END 2021-06-18 06:51 | disposition home or self-care (01) ==
PROVIDERS: Emergency Provider Emergency Medicine; PCP Emergency Medicine
DX: M79.601 Pain in right arm (principal); J45.909 Unspecified asthma, uncomplicated; F17.210 Nicotine dependence, cigarettes, uncomplicated; Z79.52 Long term (current) use of systemic steroids
CPT/HCPCS: 73030; 73060; 73080; 99284

== ENCOUNTER 2021-09-30 11:58 | Emergency (ER) | payer SELFPAY ==
[2021-09-30 12:00] VITALS: BP 137/75; PULSE 91; RESP 18; TEMP 36.7; O2SAT 98; BMI 19.5
[2021-09-30 12:22] VITALS: BP 137/75; PULSE 91; RESP 18; TEMP 36.7; O2SAT 98
[2021-09-30 12:26] LABS: Strep Scrn Group A (Rapid) Negative (Negative)
--- NOTE | 2021-09-30 12:28 | HMH.EDUTC ---
[facility] [place] Clinical Impression: Sore throat Disposition: Home, Self-Care Condition on Discharge: Good Instructions: Sore Throat Additional Instructions: Tylenol or Motrin as needed for fever or pain Encourage fluids, water, Gatorade, Powerade, try cold fluids, popsicles, ice cream will make it feel better Follow-up the ER for new or worsening symptoms or no noticeable improvement over the next 24-48 hours. Follow-up with PCP this week. follow up with dentist today as scheduled Referrals: Buzz Wilkerson APRN [Primary Care Provider] - Forms: Work/School Release Time of Disposition: 12:31 Medical Decision Making - Real Inquiry Pt receiving controlled substance: No Vital Signs: 09/30/21 12:00 09/30/21 12:22 Temperature 98.1 F 98.1 F Temperature Source Oral Pulse Rate 91 H Pulse Rate [Left Brachial] 91 H Respiratory Rate 18 18 Blood Pressure 137/75 Blood Pressure [Left Arm] 137/75 Blood Pressure Mean [Left Arm] 95 Blood Pressure Source [Left Arm] Automatic Cuff Blood Pressure Position [Left Arm] Sitting 02 Sat by Pulse Oximetry 98 Oxygen Delivery Method Room Air - Lab Data Lab Results 09/30/21 12:06: Group A Strep Rapid Negative Orders (Tests/Meds): ORDERS Category Date Time Status Strep Screen Confirmation Stat Micro 09/30/21 12:06 [place] [facility] - General Chief complaint: [facility] Stated complaint: sore throat Time Seen by Provider: 09/30/21 12:28 Mode of Arrival: Ambulatory Source of Information: Patient Limitations: No Limitations Description of Symptoms (Recalled from Triage Doc. by RN): PATIENT C/O SORE THROAT THAT STARTED LAST NIGHT. RECENTLY EXPOSED TO STREP HEENT Symptoms (Recalled from RN notes): Yes Resp Symptoms (Recalled from RN notes): No Skin Symptoms (Recalled from RN notes): No MS Symptoms (Recalled from RN notes): No Functional Status (Recalled from RN notes): WNL - History of Present Illness Provider Complaint: 26 yr old male presents for sore throat. pt states he has a broken tooth he is going to dentist after leaving here for. 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 I have reviewed the patient's past medical history: Yes Medical History: Reports:: Asthma Amputation: No Fractures: No Comment: scope - Social History Smoking Status: Current every day smoker Tobacco Type: cigarettes # Packs/Day (cigarettes): 1 Alcohol Intake: never Substance Use Type: hallucinogens Occupational Status: other Housing: house Family Hx:: No significant family history ROS Obtained: Yes Systems reviewed as appropriate & no additional complaints - Constitutional Constitutional: Reports system reviewed and no additional complaints, except as docu, Denies fever(s) - Eyes Eyes: Reports system reviewed and no additional complaints, except as docu, Denies dry eyes - ENT Ears, Nose, Mouth, and Throat: Reports system reviewed and no additional complaints, except as docu, Reports sore throat - Cardiovascular Cardiovascular: Reports system reviewed and no additional complaints, except as docu, Denies chest pain - Respiratory Respiratory: Reports system reviewed and no additional complaints, except as docu, Denies cough - Gastrointestinal Gastrointestingal: Reports: system reviewed and no additional complaints, except as docu. Denies: nausea - Musculoskeletal Musculoskeletal: Reports system reviewed and no additional complaints, except as docu, Denies joint pain - Integumentary/Breasts Skin/Breast: Reports system reviewed and no additional complaints, except as docu, Denies unusual bruising - Neurologic Neurologic: Repor
== END 2021-09-30 12:34 | disposition home or self-care (01) ==
PROVIDERS: Emergency Provider Nurse Practitioner Family; PCP Nurse Practitioner Family
DX: J02.9 Acute pharyngitis, unspecified (principal); S02.5XXA Fracture of tooth (traumatic), initial encounter for closed fracture; J45.909 Unspecified asthma, uncomplicated; F17.210 Nicotine dependence, cigarettes, uncomplicated
CPT/HCPCS: 87430; 99213; G0463

== ENCOUNTER 2022-01-21 18:35 | Emergency (ER) | payer SELFPAY ==
[2022-01-21 19:13] VITALS: BP 116/73; PULSE 84; RESP 18; TEMP 36.8; O2SAT 96; BMI 19.5
--- NOTE | 2022-01-21 19:27 | EXP.UTC ---
Discharge Plan Disposition Patient Disposition: Home, Self-Care Prescriptions Prescriptions: New ondansetron 4 mg Tablet,Disintegrating 4 mg PO Q8H PRN (Reason: Nausea) Qty: 12 0RF Referrals Follow up/Referrals: Guanako Hernandez MD [Primary Care Provider] - See instructions Activity Restrictions/Add. Instructions Additional Instructions/Restrictions: Drink plenty of fluids. Take tylenol or ibuprofen for pain or fever. Take the medications as directed. Follow up with your regular doctor. GO TO THE ER FOR ANY WORSENING SYMPTOMS Clinical Impressions Clinical Impression: Gastroenteritis Stand Alone Forms Stand Alone Forms: Work/School Release Instructions Patient Instructions: Viral Gastroenteritis Discharge ED Provider: George Weber [facility] General Stated complaint: chills was sick yesterday vomiting,chills Mode of Arrival: Ambulatory Source of Information: Patient Limitations: No Limitations Time Seen by Provider: 01/21/22 19:26 Description of Symptoms (Recalled from Triage Doc. by RN): pt comes in with c/o of yesterday morning waking up in a puddle of sweat, nausea, vomitting, hot/cold flashes. HEENT Symptoms (Recalled from RN notes): No Resp Symptoms (Recalled from RN notes): No Skin Symptoms (Recalled from RN notes): No MS Symptoms (Recalled from RN notes): No Functional Status (Recalled from RN notes): n/a History of Present Illness Provider Complaint: He states that since yesterday he has had n/v/d, low grade fever and chills at times. He has been around people that had gi viruses recently. He denies abdominal pain. Related Data Previous Rx's Medication Instructions Recorded ondansetron 4 mg disintegrating 4 mg PO Q8H PRN Nausea #12 tabs 01/21/22 tablet Allergies Allergy/AdvReac Type Severity Reaction Status Date / Time No Known Allergies Allergy Verified 01/21/22 19:15 Worker's Comp Is this a Worker's Comp case?: No PFSH PFSH Social History Smoking Status: Current every day smoker tobacco type: cigarettes packs per day: 1 second hand exposure: Yes alcohol intake: never substance use type: hallucinogens current occupational status: other Travel in the last 8 weeks: None housing: house ROS Obtained: Yes All systems reviewed & no additional complaints except as documented Constitutional Constitutional: Denies chills, Denies fever(s) and Reports poor appetite ENT Ears, Nose, Mouth, and Throat: Denies dizziness and Denies sore throat Cardiovascular Cardiovascular: Denies dyspnea Respiratory Respiratory: Denies chest congestion, Denies cough and Denies dyspnea Gastrointestinal Gastrointestingal: Reports as per HPI Genitourinary Male Genitourinary: Denies hematuria, Denies urinary frequency, Denies urinary hesitancy, Denies urinary incontinence and Denies urinary urgency Musculoskeletal Musculoskeletal: Denies arthralgias Integumentary/Breasts Skin/Breast: Denies rash Neurologic Neurologic: Denies dizziness Physical Exam General General appearance: alert and in no apparent distress Head Head exam: atraumatic and normocephalic Eye Eye exam: Present normal appearance, PERRL and EOMI ENT ENT exam: Present normal exam, normal oropharynx, mucous membranes moist, TM's normal bilaterally and normal external ear exam Neck Neck exam: Present normal inspection, full ROM and trachea midline; Absent tenderness, meningismus or lymphadenopathy Chest Chest inspection: Present normal inspection and symmetric chest wall rise; Absent tenderness, rash or abscess Respiratory Respiratory exam: Present normal lung sounds bilaterally; Absent respiratory distress, wheezes or stridor Cardiovascular Cardiovascular exam: Present regular rate and normal rhythm; Absent irregular rhythm, systolic murmur, diastolic murmur or JVD Abdominal Exam Abdominal exam: Present soft and normal bowel sounds; Absent distention, tendern
[2022-01-21 19:53] VITALS: BP 116/73; PULSE 84; RESP 18; TEMP 36.8
== END 2022-01-21 19:54 | disposition home or self-care (01) ==
PROVIDERS: Emergency Provider Nurse Practitioner Family; PCP Emergency Medicine
DX: K52.9 Noninfective gastroenteritis and colitis, unspecified (principal)
CPT/HCPCS: 99212; C9803; G0463; U0003; U0005

== ENCOUNTER 2022-04-23 15:27 | Emergency (ER) | payer SELFPAY ==
[2022-04-23 15:30] VITALS: BP 133/85; PULSE 84; RESP 20; TEMP 36.6; O2SAT 98; BMI 20.3
[2022-04-23 15:56] LABS: UTC Influenza B Antigen Negative (Negative); UTC Strep Screen (Rapid) Negative (Negative)
--- NOTE | 2022-04-23 16:02 | EXP.UTC ---
Discharge Plan Disposition Patient Disposition: Home, Self-Care Condition: Good Prescriptions Prescriptions: No Action ondansetron 4 mg Tablet,Disintegrating 4 mg PO Q8H PRN (Reason: Nausea) Qty: 12 0RF Referrals Follow up/Referrals: Guanako Hernandez MD [Primary Care Provider] - See instructions Activity Restrictions/Add. Instructions Additional Instructions/Restrictions: No sign of a bacterial infection. Likely viral. Viruses can take 7-14 days to run their course. Nasal saline and bulb syringe or nose Nirali to remove nasal drainage to help with nasal congestion. Hard to eat, drink, sleep with nasal congestion so important to keep this cleaned out. Monitor temp. Tylenol or Motrin as needed for pain or fever Encourage fluids, water, Gatorade, Powerade, Pedialyte if /toddler/child Warm salt water gargles Warm fluids Sore throat lozenges Sleep elevated Humidifier/vaporizer Follow-up immediately for new or worsening symptoms or no noticeable improvement over the next 48-72 hours. Clinical Impressions Clinical Impression: Influenza A Stand Alone Forms Stand Alone Forms: Work/School Release Instructions Patient Instructions: DI for Influenza -- Adult Discharge ED Provider: Rock ([facility] HPI General Stated complaint: vomiting diarrhea Mode of Arrival: Ambulatory Source of Information: Patient Limitations: No Limitations Time Seen by Provider: 04/23/22 16:02 Description of Symptoms (Recalled from Triage Doc. by RN): PATIENT C/O HEADACHE THAT STARTED 4 DAYS AGO AND VOMITING AND DIARRHEA X 3 DAYS HEENT Symptoms (Recalled from RN notes): Yes Resp Symptoms (Recalled from RN notes): No Skin Symptoms (Recalled from RN notes): No MS Symptoms (Recalled from RN notes): No Functional Status (Recalled from RN notes): WNL History of Present Illness Provider Complaint: 26 yr old male presents for peralta, vomiting and diarrhea for 4 days Related Data Previous Rx's Medication Instructions Recorded ondansetron 4 mg disintegrating 4 mg PO Q8H PRN Nausea #12 tabs 01/21/22 tablet Allergies Allergy/AdvReac Type Severity Reaction Status Date / Time No Known Allergies Allergy Verified 01/21/22 19:15 Worker's Comp Is this a Worker's Comp case?: No [facility] Disclaimer: The information contained in this section may have been updated after the patient was seen, as this information can be updated by other users. Medical History , CLEANER SIGNS) Asthma History of gastroesophageal reflux (GERD) Social History , CLEANER SIGNS) Smoking Status: Current every day smoker tobacco type: cigarettes packs per day: 1 second hand exposure: Yes alcohol intake: never substance use type: hallucinogens current occupational status: other Travel in the last 8 weeks: None housing: house ROS Obtained: Yes All systems reviewed & no additional complaints except as documented Constitutional Constitutional: Reports system reviewed and no additional complaints, except as documented and Reports as per HPI Eyes Eyes: Reports system reviewed and no additional complaints, except as documented ENT Ears, Nose, Mouth, and Throat: Reports system reviewed and no additional complaints, except as documented Cardiovascular Cardiovascular: Reports system reviewed and no additional complaints, except as documented Respiratory Respiratory: Reports system reviewed and no additional complaints, except as documented Gastrointestinal Gastrointestingal: Reports system reviewed and no additional complaints, except as documented, as per HPI, diarrhea and vomiting Musculoskeletal Musculoskeletal: Reports system reviewed and no additional complaints, except as documented Integumentary/Breasts Skin/Breast: Reports system reviewed and no additional complaints, except as documented Neurologic Neurologic: Reports system reviewed and no a
[2022-04-23 16:07] VITALS: BP 133/85; PULSE 84; RESP 20; TEMP 36.6; O2SAT 98
[2022-04-23 16:07] LABS: UTC Influenza A Antigen Positive (Negative)
== END 2022-04-23 16:09 | disposition home or self-care (01) ==
PROVIDERS: Emergency Provider Nurse Practitioner Family; PCP Emergency Medicine
DX: J10.1 Influenza due to other identified influenza virus with other respiratory manifestations (principal)
CPT/HCPCS: 87804; 87880; 99212; 99213; G0463

== ENCOUNTER 2024-04-04 12:40 | Emergency (ER) | payer SELFPAY ==
[2024-04-04 12:41] VITALS: BP 130/83; PULSE 83; RESP 16; TEMP 36.7; O2SAT 98; BMI 19.1
--- NOTE | 2024-04-04 13:33 | ED_ITS ---
<Statement entered by Mari Quiñonez DO - 04/04/24 16:09> I was consulted by the RUY, and we discussed the complexity of the problems being addressed. I approved the treatment and management plan for this patient's care in the emergency department, thus performing a substantive portion of the medical decision making. Mari Quiñonez DO Discharge Plan Disposition Patient Disposition: Home, Self-Care Condition: Good Prescriptions Prescriptions: New methocarbamol 750 mg tablet 750 mg PO TID Qty: 20 0RF No Action ondansetron 4 mg Tablet,Disintegrating 4 mg PO Q8H PRN (Reason: Nausea) Qty: 12 0RF Referrals Follow up/Referrals: Darryn Solano DO [Primary Care Provider] - See instructions Activity Restrictions/Add. Instructions Additional Instructions/Restrictions: Return to the emergency department any worsening signs or symptoms to include fever chills worsening back pain, nausea vomiting chest pain, any numbness tingling or any difficulty with your bladder or bowels. Please take medication as prescribed. Recommend rest ice ibuprofen. Follow-up with primary care provider. Clinical Impressions Clinical Impression: Acute thoracic myofascial strain Instructions Patient Instructions: DI for Thoracic Back Pain, DI for Low Back Pain Print Language Print Language: Bulgarian Discharge ED Provider: Mari Quiñonez General Adult HPI General Chief complaint: Back Pain/Injury Stated complaint: back pain Time Seen by Provider: 04/04/24 13:22 Mode of Arrival: Ambulatory Source of Information: Patient History of Present Illness HPI narrative: 28 year-old male presents emergency department with midthoracic back pain, patient denies any trauma per history no bending lifting twisting injury, no fall or other trauma, patient states he woke up with the pain . He believes he might have slept wrong . Patient has no radicular symptomatology, patient's pain is worse with certain movements, noted in the mid thoracic spine/lower cervical spine, he denies any fever chills chest pain shortness of breath nausea vomiting constipation diarrhea, denies any upper or lower extremity weakness, denies any numbness or tingling, has urinary bladder or bowel dysfunction denies any saddle anesthesia, patient has no real relevant past medical history with the exception of data deficient history of what sounds like PUD, he has not had problems with this in over 8 years and had what sound like an EGD. He is a current everyday smoker (vapes), denies any alcohol tobacco or drug use. Triage vitals are grossly unremarkable. Onset (ago): hour(s) Related Data Previous Rx's ?Medication ?Instructions ?Recorded ondansetron 4 mg disintegrating 4 mg PO Q8H PRN Nausea #12 tabs 01/21/22 tablet methocarbamol 750 mg tablet 750 mg PO TID #20 tabs 04/04/24 Allergies Allergy/AdvReac Type Severity Reaction Status Date / Time No Known Allergies Allergy Verified 01/21/22 19:15 [facility] Disclaimer: The information contained in this section may have been updated after the patient was seen, as this information can be updated by other users. Medical History , DEPARTMENT COORDINATOR) Asthma History of gastroesophageal reflux (GERD) Social History , DEPARTMENT COORDINATOR) Smoking Status: Current every day smoker tobacco type: cigarettes packs per day: 1 second hand exposure: Yes alcohol intake: never substance use type: hallucinogens current occupational status: other Travel in the last 8 weeks: None housing: house Have you lived/traveled outside [place] in past 30 days?: No Contact w/someone who lives/traveled outside US past 30 days?: No Exposure to someone with infectious disease in past 14 days?: No Do you have a fever (greater than 100.4 F or 38 C)?: No Have you tested positive for COVID-19: No Exposed to someone with COVID-19 in past 14 days?: No Do you have a sore throat?: No Do you have a cough?: No Do you have any weakness?: No Do you have any diarrhea?: No Are you experiencing any unusual bleeding?: No Do you have any muscle aches/pain?: No Do you have any abdominal pain?: No Are you experiencing loss of taste or smell?: No Other Medical History Have you received the Flu Vaccine for this season: No Have you received the Pneumonia Vaccine: No ROS Obtained: Yes All systems reviewed & no additional complaints except as documented Physical Exam General General appearance: alert and in no apparent distress Head Head exam: atraumatic and normocephalic Eye Eye exam: Present PERRL and EOMI ENT ENT exam: Present mucous membranes moist Neck Neck exam: Present normal inspection Chest Chest inspection: Present normal inspection and symmetric chest wall rise Respiratory Respiratory exam: Present normal lung sounds bilaterally; Absent respiratory distress Cardiovascular Cardiovascular exam: Present regular rate and normal rhythm Abdominal Exam Abdominal exam: Present soft; Absent tenderness Extremities Exam Extremities exam: Present normal inspection and full ROM; Absent tenderness Back Exam Back exam: Present normal inspection, tenderness and paraspinal tenderness Comment: There is mid thoracic myofascial paraspinal tenderness to palpation, with some pain limited range of motion, patient has otherwise unremarkable back exam no paraspinal or spinal tenderness of the cervical, or lumbar spine, there is no spinal tenderness palpation to the thoracic spine, no step-off deformities. Neurological Exam Neurological exam: Present alert, oriented X3, normal gait and other (There is 5 out of 5 strength in bilateral lower and upper extremities, no sensation deficits, there is negative Humberto sign bilaterally); Absent motor sensory deficit Psychiatric Psychiatric exam: Present normal affect Skin Skin exam: Present warm and dry Medical Decision Making Medical Records Medical records reviewed: Yes I reviewed the patient's medical records. Screening: Per USPSTF and CDC recommendations, given the prevalence of disease in our region, it is our hospital?s policy to screen for HIV and viral Hepatitis for all patients aged 18 and over and those with ongoing risk factors. Real Inquiry Pt receiving controlled substance: No Real was queried for this patient: No Orders (Tests/Meds): ED MEDICATIONS Generic Name Dose Route Start Last Admin Trade Name Freq PRN Reason Stop Dose Admin Lidocaine 1 each 04/04/24 13:33 Lidocaine 5% Transdermal Patch TP 04/04/24 13:34 ONCE ONE Discontinued Medications Generic Name Dose Route Start Last Admin Trade Name Freq PRN Reason Stop Dose Admin Ketorolac Tromethamine 15 mg 04/04/24 13:28 Ketorolac 30mg/Ml Vial IM 04/04/24 13:29 ONCE ONE Medical Decision Narrative: 28-year-old male presents emerged part with midthoracic spine pain, no trauma, see HPI for detail past medical history, differential diagnosis include but not limited to, mid thoracic myofascial strain, cervicalgia, other musculoskeletal injury. Patient has no other red flag signs and symptoms, I offered laboratory studies and imaging studies to rule out any other cause, patient deferred at this time I think this is appropriate, this seems more like a mid thoracic myofascial sprain, will treat accordingly, with 15 mg IM Toradol, and lidocaine patch, I will prescribe patient muscle relaxers to use as outpatient patient will return to the emergency department any worsening signs or symptoms, patient again at this time has no other red flag signs or symptoms, denies/deferred any other workup at this time. Patient follow-up PCP as directed, patient family voiced understanding agreement current treatment plan/discharge plan. Critical Care Critical Care Time Critical Care Time: No
[2024-04-04] MEDS: LIDOCAINE 5% TRANSDERMAL PATCH 1 EACH TP (13:41)
[2024-04-04] MEDS: KETOROLAC 30MG/ML VIAL 15 MG IM (13:41)
[2024-04-04 13:55] VITALS: BP 129/94; PULSE 76; RESP 18; TEMP 36.6; O2SAT 99
== END 2024-04-04 13:56 | disposition home or self-care (01) ==
PROVIDERS: Emergency Provider Emergency Medicine; PCP Internal Medicine
DX: S29.019A Strain of muscle and tendon of unspecified wall of thorax, initial encounter (principal); M54.9 Dorsalgia, unspecified
CPT/HCPCS: 96372; 99283; J1885

== ENCOUNTER 2025-01-10 01:31 | Emergency (ER) | payer OTHER, SELFPAY ==
--- NOTE | 2025-01-10 01:35 | ED_ITS ---
Discharge Plan Disposition Patient Disposition: Home, Self-Care Prescriptions Prescriptions: New methocarbamol 750 mg tablet 750 mg PO Q8H Qty: 30 0RF No Action methocarbamol 750 mg tablet 750 mg PO TID Qty: 20 0RF ondansetron 4 mg Tablet,Disintegrating 4 mg PO Q8H PRN (Reason: Nausea) Qty: 12 0RF Referrals Follow up/Referrals: Oli Leary DO [Staff Physician, Orthopedics] - See instructions Provider,Referral, [Primary Care Provider, Medical] - See instructions Activity Restrictions/Add. Instructions Additional Instructions/Restrictions: Please follow-up with our orthopedist Dr. Leary. Please return to the emergency department if you develop any new or worsening symptoms or become concerned for your health. Clinical Impressions Clinical Impression: Arm pain, right Print Language Print Language: Maltese Discharge ED Provider: Monty Sigala General Adult HPI General Chief complaint: PAIN Stated complaint: R shoulder pain Time Seen by Provider: 01/10/25 01:35 History of Present Illness HPI narrative: 29-year-old male presents for right upper arm pain. He reports he noticed it a couple of days ago, describes it as a soreness around his bicep. Over the last couple days has been worsening. He denies any trauma. Reports he has not laid on it funny. He has not fallen. Denies any redness or swelling. No history of IV drug use or other infectious etiology. Now it hurts his bicep when he raises his arm at the shoulder, but the shoulder itself does not hurt. Nor does it hurt when he flexes the arm at the elbow. He reports some radiation of pain into his lower arm intermittently as well. Related Data Previous Rx's ?Medication ?Instructions ?Recorded ondansetron 4 mg disintegrating 4 mg PO Q8H PRN Nausea #12 tabs 01/21/22 tablet methocarbamol 750 mg tablet 750 mg PO TID #20 tabs methocarbamol 750 mg tablet 750 mg PO Q8H #30 tabs Allergies Allergy/AdvReac Type Severity Reaction Status Date / Time No Known Allergies Allergy Verified 01/21/22 19:15 [facility] Disclaimer: The information contained in this section may have been updated after the patient was seen, as this information can be updated by other users. Medical History (Reviewed 04/23/22 @ 16:03 by Buzz Wilkerson ([facility]), [employer] CONSULTANT) Asthma History of gastroesophageal reflux (GERD) Social History (Reviewed 04/23/22 @ 16:03 by Buzz Wilkerson ([facility]), [employer] BW CONSULTANT) Smoking Status: Current every day smoker tobacco type: cigarettes packs per day: 1 second hand exposure: Yes alcohol intake: never substance use type: hallucinogens current occupational status: other Travel in the last 8 weeks?: None housing: house Have you lived/traveled outside US in past 30 days?: No Contact w/someone who lives/traveled outside US past 30 days?: No Exposure to someone with infectious disease in past 14 days?: No Do you have a fever (greater than 100.4 F or 38 C)?: No Have you tested positive for COVID-19?: No Exposed to someone with COVID-19 in past 14 days?: No Do you have a sore throat?: No Do you have a cough?: No Do you have any weakness?: No Do you have any diarrhea?: No Are you experiencing any unusual bleeding?: No Do you have any muscle aches/pain?: No Do you have any abdominal pain?: No Are you experiencing loss of taste or smell?: No Other Medical History Have you received the Flu Vaccine for this season: No Have you received the Pneumonia Vaccine: No ROS Obtained: Yes All systems reviewed & no additional complaints except as documented Physical Exam General General appearance: alert and in no apparent distress Head Head exam: atraumatic and normocephalic Eye Eye exam: Present normal appearance, PERRL and EOMI ENT ENT exam: Present normal oropharynx and normal external ear exam Neck Neck exam: Present normal inspection and full ROM Chest Chest inspection: Present normal inspection and symmetric chest wall rise; Absent tenderness Respiratory Respiratory exam: Present normal lung sounds bilaterally; Absent respiratory distress Cardiovascular Cardiovascular exam: Present regular rate and normal rhythm Abdominal Exam Abdominal exam: Present soft; Absent distention, tenderness or guarding Extremities Exam Extremities exam: Present normal inspection and other (Tenderness to the right medial upper arm, no overlying skin changes or visible swelling); Absent edema or joint swelling Back Exam Back exam: Present normal inspection; Absent tenderness Neurological Exam Neurological exam: Present alert and oriented X3; Absent motor sensory deficit Psychiatric Psychiatric exam: Present normal affect and normal mood Skin Skin exam: Present warm, dry and normal color Lymphatic Lymphatic Findings: no adenopathy Medical Decision Making Medical Records Medical records reviewed: Yes I reviewed the patient's medical records. Screening: Per USPSTF and CDC recommendations, given the prevalence of disease in our region, it is our hospital?s policy to screen for HIV and viral Hepatitis for all patients aged 18 and over and those with ongoing risk factors. Real Inquiry Pt receiving controlled substance: No Real was queried for this patient: No Vital Signs: 01/10/25 01:39 01/10/25 01:52 Temperature 98.4 F 98.2 F Temperature Source Temporal Artery Scan Pulse Rate 82 Pulse Rate [Right] 82 Respiratory Rate 18 20 Blood Pressure 155/109 H Blood Pressure [Right Arm] 155/109 H Blood Pressure Mean [Right Arm] 124 02 Sat by Pulse Oximetry 98 Oxygen Delivery Method Room Air Room Air Lab Data Lab results reviewed: Yes I reviewed the patient's lab results. Orders (Tests/Meds): ORDERS Category Date Time Status POCUS Point of Care (ER Only) Stat Exams 01/10/25 01:53 Completed Medical Decision Narrative: 29-year-old male without significant past medical history presents for right upper arm pain slowly developing over the last couple of days.. History was obtained via interactive discussion with patient. On arrival, patient is [afebrile, hemodynamically stable, satting appropriately, alert, oriented x4, GCS 15], moving all extremities spontaneously. Full physical exam performed and significant for pain in the upper arm with range of motion of the shoulder, no pain with range of motion of the elbow. No obvious swelling noted. Mild tenderness noted. Differential includes but is not limited to DVT, arterial insufficiency, muscle strain, ligamentous injury, bony injury. Bedside ultrasound shows no evidence of DVT, cellulitis, abscess or other pathology. Physical exam is not consistent with a bony injury. I offered patient an x-ray to confirm but he declined. The underlying etiology is not exactly clear at this time, recommended he follow-up with Ortho if symptoms continue to worsen. He was discharged with prescription for muscle relaxers. Return precautions given. Limited soft tissue ultrasound Indication: Arm pain Identified structures: Bicep, tricep, brachial vein, brachial artery Location: Right upper upper extremity Findings: Normal soft tissue ultrasound without evidence of DVT, abscess, cellulitis, mass lesion Impression: Normal limited soft tissue ultrasound Images were saved to permanent archive The study was technically adequate Soft Tissue CPT Codes: CPT Upper extremity: 51601-39 This study was performed by me, Dr. Monty Sigala, and I personally interpreted all images/videos. Procedures Risk/Benefits of Procedure(s) Were Explained: Yes Critical Care Critical Care Time Critical Care Time: No
[2025-01-10 01:39] VITALS: BP 155/109; PULSE 82; RESP 18; TEMP 36.9; O2SAT 98; BMI 19.8
--- OUTSIDE RECORDS SUMMARY | 2025-01-10 01:46 | XMS_ITS | Clinical Summary ---
Author Organization [facility] Address [address] [place] [phone] Phone CareEverywhereSuppor Care Team Providers Care Research Nutritionist Name Role Phone Unavailable Primary Care Provider Unavailabl e Allergies No known active allergies Social History Tobacco Use Types Packs/Day Years Used Date Smoking Tobacco: Every Day Cigarettes 2 10 Started: 01/19/2015 Smokeless Tobacco: Never Intimate Partner Violence Answer Date R ecorded Insults You Not on file 01/13/2021 Threatens You Not on file 01/13/2021 Screams at You Not on file 01/13/2021 Physically Hurt Not on file 01/13/2021 Intimate Partner Violence Score Not on file 01/13/2021 Stress Answer Date Recorded Stress in your Life Not on file 02/21/2024 Dealing with Stress 3 02/21/2024 Sex and Gender Information Value Date Recorded Sex Assigned at Not on file Legal Sex Male 10:13 PM CDT Gender Identity Not on file Sexual Orientation Not on file Plan of Treatment Health Maintenance Due Date Last Done Comments Dental Cleaning/Exam 1997 HIV Screening 1997 Hepatitis C Screening 1997 Asthma Spirometry 2002 HPV Immunization (1 - Male 3 -dose series) 2012 Annual Preventive Exam 07/04/2015 Hep B Infection Screening - Triple Screen 07/04/2015 Hepatitis B Immunization (1 of 3 - 19+ 3-dose series) 2016 Pneumococcal Immunization (1 of 2 - PCV) 2016 Tetanus Diphtheria and Pertu ssis Immunization (1 - Tdap) 2016 Covid-19 Immunization (1 - 2 024-25 season) 2024 Influenza Immunization (#1) 2024 HIB Immunization Aged Out No longer e ligible based on patient's age to complete this topic Hepatitis A Immunization Aged Out No longer eligible based on patient's age to complete this topic Polio Immunization Aged Out No longer eligible based on patient's age to complete this topic Varicella Immunization Aged Out No lo nger eligible based on patient's age to complete this topic Insurance OPT OUT NO COPAY NB
[2025-01-10 01:52] VITALS: BP 155/109; PULSE 82; RESP 20; TEMP 36.8; O2SAT 98
== END 2025-01-10 01:55 | disposition home or self-care (01) ==
PROVIDERS: Emergency Provider Emergency Medicine
DX: M79.621 Pain in right upper arm (principal)
CPT/HCPCS: 99282; 99283

== ENCOUNTER 2025-01-15 09:57 | Outpatient (CLI) | payer OTHER, SELFPAY ==
--- NOTE | 2025-01-15 10:01 | XR_ITS ---
FINAL REPORT CLINICAL HISTORY: right arm pain COMPARISON: None FINDINGS: RIGHT HUMERUS 2 views demonstrate no acute fracture or dislocation. The joint spaces appear normal. No acute soft tissue abnormality is seen. IMPRESSION: No acute bony abnormality. Reviewed, Interpreted and Dictated by Ronnie Pacheco MD Transcribed by Marylin Delgadillo Authenticated and [facility]
--- NOTE | 2025-01-15 10:01 | XR_ITS ---
FINAL REPORT CLINICAL HISTORY: right shoulder pain COMPARISON: None FINDINGS: RIGHT SHOULDER Three views demonstrate no acute fracture or dislocation. The visualized joint spaces are normally aligned. The soft tissues are unremarkable. IMPRESSION: No acute bony abnormality. Reviewed, Interpreted and Dictated by Rnonie Pacheco MD Transcribed by Marylin Delgadillo Authenticated and [facility]
--- OUTSIDE RECORDS SUMMARY | 2025-01-15 10:32 | XMS_ITS | Clinical Summary ---
Author Organization [facility] Address [address] [place] [id number] Phone CareEverywhereSuppor Care Team Providers Care Professional Skater Name Role Phone Unavailable Primary Care Provider [...]
== END 2025-01-15 23:59 | disposition home or self-care (01) ==
LOC: RAD 09:58
PROVIDERS: Visit Provider Physician Assistant
DX: M25.511 Pain in right shoulder (principal); M79.601 Pain in right arm
CPT/HCPCS: 73030; 73060